=== PATIENT | male | born 1950 | race Caucasian/White ===

== ENCOUNTER 2016-03-30 19:55 | Emergency (ER) | payer BC, OTHER ==
[2016-03-30 20:20] VITALS: TEMP 98.4; BMI 27.8
[2016-03-30] MEDS ORDERED: DIPHENHYDRAMINE 50 MG/ML VIAL IV ONE (21:10)
[2016-03-30] MEDS ORDERED: NS 1,000 ML IV ONE (21:10)
[2016-03-30] MEDS ORDERED: METOCLOPRAMIDE 10 MG/2 ML VIAL IV ONE (21:10)
[2016-03-30] MEDS ORDERED: DEXAMETHASONE PF 10 MG/1 ML VIAL IV ONE (21:10)
[2016-03-30] MEDS ORDERED: KETOROLAC TROMETH 30 MG/ML VIAL IV ONE (21:10)
[2016-03-30 21:49] LABS: AUTOMATED BASOPHIL 1.1 % (0-2); AUTOMATED EOSINOPHIL 3.4 % (0-5); AUTOMATED LYMPH 22.8 % (17-44); AUTOMATED MONOCYTE 8.3 % (3-10); AUTOMATED NEUTROPHIL 64.4 % (45-76); MPV 8.2 fL (7.4-10.4)
--- NOTE | 2016-03-30 21:54 | EDPRACDOC ---
- General Information Chief Complaint: Blood Pressure (Problems) Stated Complaint: BP PROBLEMS Time Seen by Provider: 03/30/16 20:43 Information Source: Patient Mode Of Arrival: Car Home Medications: Home Medications Dexlansoprazole [Dexilant] 60 mg PO DAILY 03/30/16 Ketorolac Tromethamine 10 mg PO Q6H PRN #20 tab 03/30/16 Ketorolac Tromethamine [Toradol] 10 mg PO Q6H PRN 03/30/16 Losartan Potassium [Cozaar] 25 mg PO DAILY 03/30/16 Ondansetron [Zofran Odt] 4 mg PO Q6H PRN #30 tab.rapdis 03/30/16 Pravastatin Sodium 10 mg PO DAILY 03/30/16 Allergies/Adverse Reactions: Allergies Allergy/AdvReac Type Severity Reaction Status Date / Time acetaminophen Allergy Severe vomit Verified 03/30/16 20:46 [From Darvocet-N 100] oxycodone HCl [From Percocet] Allergy Severe vomit Verified 03/30/16 20:46 Penicillins Allergy Severe hives Verified 03/30/16 20:46 propoxyphene napsylate Allergy Severe vomit Verified 03/30/16 20:46 [From Darvocet-N 100] hydrocodone Allergy Itching Verified 03/30/16 20:46 - History of Present Illness Onset: [employer] HPI: PT PRESENTS WITH HEADACHE AND 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 STATES HE BECAME FLUSHED AND CHECKED HIS BP AND IT WAS ELEVATED. STATES HE TOOK ANOTHER 1/2 OF HIS BLOOD PRESSURE MEDICATION AND IT CONTINUED TO RISE. STATES HE HAS MIGRAINES FREQUENTLY. 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 Symptoms: Reports: Mild, Moderate Circumstances: Reports: Spontaneous Onset Relevent History of: Reports: Hypertension Hypertension Treatment: Reports: Taking Medication Recent Use of: Reports: None Associated Signs and Symptoms: Reports: Headache ED Past Medical History - History Reviewed Yes Nurses notes reviewed and agree except as marked - Patient Medical History Neurological History: Reports: Cerebrovascular Accident (feb 2010) Cardiac History: Reports: Hypertension, Hypercholesterolemia GI/ History: Reports: Kidney (Renal Surgery) (stent placement 01/20/14), Kidney Stones, Gastroesophageal Reflux Psychological History: Denies: Depression Systemic History: Denies: Cancer - Family Medical History Reports: Hypertension (mother), Cancer (mother lung ca, father lymphoma), Cardiac Disorders (father). Denies: Diabetes, Stroke - Social Medical History Smoking Status: Never smoker EDM Review of Systems - Review of Systems ROS Negative Except as Marked: Yes All systems reviewed and were negative except as marked - Physical Exam Constitutional: Alert Oriented to: Time, Person, Place Last recorded Vital Signs: Last Vital Signs Temp 98.4 F 03/30/16 20:17 Pulse 79 03/30/16 21:44 Resp 20 03/30/16 21:44 BP 173/99 03/30/16 21:44 Pulse Ox 94 03/30/16 21:44 Oxygen Pulse Oxygen Saturation 94 O2 Device Room Air Oxygen Flow Rate Fraction of Inspired Oxygen ( FIO2) - HEENT Head: Normal ( normocephalic) Eye Exam: Normal (PERRL, EOMI, Sclera white) Oropharynx: Normal (Pharynx:Moist without exudate,Gums-no swelling) Tympanic Membrane: Normal Nose: No Symptoms Reported (septum midline) Neck: Normal (FROM, trachea at midline) - Respiratory/Cardiovascular Respiratory: Normal - CTA (BBS clear to auscultation without adventitious sounds ) Cardiovascular: Normal (RRR without murmur, gallop or rub) - GI Auscultation: Normal (NABS) Palpation: Normal (Soft,No rebound or guarding, non distended) Tenderness: Non tender Gamez's Sign: Negative Rectal Exam: Deferred - Musculoskeletal Back: Normal (Non-Tender) Extremities: Normal (Normal tone, Pulses 2+ No cyanosis or edema, FROM) - Integumentary Skin: Normal, Warm, Dry Lymphatics: Normal (no adenopathy) - Neurologic Memory Impaired: Normal Motor Function: Normal (Normal tone, Pulses 2+ No cyanosis or edema, FROM) Cranial Nerve: Normal (CN II-X11 intact sensation, strength 5/5) Cerebellar: Normal Mood Description: Normal Perception: Normal - Differential Diagnosis Hypertensive Emergency, Other - Re-evaluation Re-evaluation 1 Re-evaluation Time: 22:41 (PT FEELING MUCH BETTER AT THIS TIME. VSS. NO ACUTE DISTRESS NOTED. ) - Results 03/30/16 21:35 03/30/16 21:35 - EKG EKG #1 EKG Time: 21:28 -: Yes EKG interpreted by me Rate: bpm: 83 [place]: Normal Rhythm: NSR Block: None Hypertrophy: None ST: Normal Decision Time to Discharge: 22:42 - Departure Disposition: Home Condition: Stable Final Diagnosis: Migraine Qualifiers: Migraine type: unspecified Status migrainosus presence: without status migrainosus Intractability: not intractable Qualified Code(s): G43.909 - Migraine, unspecified, not intractable, without status migrainosus Instructions: Migraine Headache (ED) Education/Counseling Given To: Patient Education/Counseling Given Regarding: Diagnosis, Treatment, Prognosis, Follow Up Referrals: Gucci Adorno MD [Primary Care Provider] - One Week Prescriptions: Ketorolac Tromethamine 10 mg PO Q6H PRN #20 tab PRN Reason: Pain Ondansetron [Zofran Odt] 4 mg PO Q6H PRN #30 tab.rapdis PRN Reason: Nausea/Vomiting Additional Instructions: FOLLOW UP WITH PCP NEXT WEEK. RETURN TO THE ED FOR WORSENING SYMPTOMS OR CONCERNS
[2016-03-30 21:59] LABS: BLOOD UREA NITROGEN 18 MG/DL (9-20); CALCIUM 9.5 MG/DL (8.4-10.2); CALCULATED OSMOLALITY 272 MOs/Kg (270-290); CHLORIDE 103 mEq/L (98-107); CPK TOTAL WITH POSSIBLE MB 39 IU/L (55-170); GLUCOSE 113 MG/DL (70-99); SODIUM LEVEL 140 mEq/L (137-146); TOTAL PROTEIN 7.3 G/DL (6.3-8.2)
[2016-03-30 22:01] LABS: PARTIAL THROMB. TIME 27.2 SEC (22-35); PT-INR 1.1
[2016-03-30 22:15] LABS: LEUKOCYTES/URINE NEG (NEGATIVE); NITRITE/URINE NEG (NEGATIVE); RBC/URINE 0-2 (0-2); URINE OCCULT BLOOD NEG (NEG/TRACE); WBC/URINE 0-2 (0-2)
--- NOTE | 2016-03-30 22:18 | DIRPT ---
CLINICAL DATA: Rising blood pressure tonight. Headache. EXAM: CT HEAD WITHOUT CONTRAST TECHNIQUE: Contiguous axial images were obtained from the base of the skull through the vertex without intravenous contrast. COMPARISON: 09/23/2012 FINDINGS: Mild cerebral atrophy. No ventricular dilatation. No mass effect or midline shift. No abnormal extra-axial fluid collections. Nunes-white matter junctions are distinct. Basal cisterns are not effaced. No evidence of acute intracranial hemorrhage. No depressed skull fractures. Postoperative changes with right temporal craniotomy. Diffuse opacification of the right mastoid air cells. Retention cyst or polyp in the right maxillary antrum. Left mastoid air cells are patent. IMPRESSION: No acute intracranial abnormalities. Right mastoid effusion. Electronically Signed By: Mynor Mendez M.D. On: 03/30/2016 22:16
--- NOTE | 2016-03-30 22:28 | DIRPT ---
CLINICAL DATA: Acute onset of headache and high blood pressure. Initial encounter. EXAM: CHEST 2 VIEW COMPARISON: Chest radiograph performed 02/21/2009 FINDINGS: The lungs are well-aerated. Mild vascular congestion is noted. There is no evidence of focal opacification, pleural effusion or pneumothorax. The heart is normal in size; the mediastinal contour is within normal limits. No acute osseous abnormalities are seen. IMPRESSION: Mild vascular congestion noted. Lungs remain grossly clear. Electronically Signed By: Louis Lemos M.D. On: 03/30/2016 22:25
[2016-03-30] MEDS ORDERED: ONDANSETRON HCL 4 MG ODT TAB PO ONE (22:42)
[2016-03-30] MEDS ORDERED: KETOROLAC TROMETHAMINE 10 MG TAB PO ONE (22:42)
[2016-03-30 23:07] VITALS: BP 135/74; PULSE 78
== END 2016-03-30 23:03 | disposition home or self-care (01) ==
LOC: ED 19:55
DX: G43.909 Migraine, unspecified, not intractable, without status migrainosus (principal)
CPT/HCPCS: 36415; 70450; 71020; 80053; 81001; 82550; 83880; 84484; 85025; 85610; 85730; 93005; 96361; 96374; 96375; 99284; A9270; J1100; J1200; J1885; J2765; J3490